=== PATIENT | female | born 1960 | race Two or more races ===

== ENCOUNTER 2024-03-29 08:45 | Inpatient (IN) | payer OTHER ==
[~2024-03-29] VITALS: Ht 162.6 cm; Wt 74.8 kg
[2024-03-29] MEDS ORDERED: LOTREL 5-10 MG1 CAP (08:48)
[2024-03-29] MEDS ORDERED: SYNTHROID150 MCG (08:48)
[2024-03-29] MEDS ORDERED: FAMOTIDINE/PF 20 MG/2 ML VIAL IV PUSH ONE (09:30)
[2024-03-29] MEDS ORDERED: ONDANSETRON HCL 2 MG/ML VIAL IV ONE (09:30)
[2024-03-29 10:02] LABS: HEMATOCRIT 44.7 % (36.0-45.00); HEMOGLOBIN 15.3 g/dL (12.0-15.00); MEAN CELL VOLUME 88.5 fL (80.00-100.00); MEAN CORPUSCULAR HEMOGLOBIN 30.3 pg (27.00-32.0); MEAN CORPUSCULAR HGB CONC 34.2 g/dl (32.0-36.0); PLATELET COUNT 266 K/uL (150-450); RED BLOOD COUNT 5.05 M/uL (4.00-6.00); RED CELL DISTRIBUTION WIDTH 14.3 % (11.5-14.5)
[2024-03-29 11:13] LABS: ALBUMIN 3.6 gm/dL (3.4-5.0); BILIRUBIN TOTAL 0.78 mg/dL (0.3-1.2); CALCIUM 9.5 mg/dL (8.5-10.1); CREATININE SERUM 0.92 mg/dL (0.55-1.02); GFR 61.26; POTASSIUM 4.56 mEq/L (3.5-5.1); TOTAL PROTEIN 6.6 gm/dL (6.4-8.2)
[2024-03-29] MEDS ORDERED: BUTALB/ACETAMINOPHEN/CAFFEINE 1 TAB TABLET PO ONE (12:30)
[2024-03-29] MEDS ORDERED: MECLIZINE HCL 25 MG TABLET PO ONE (12:45)
[2024-03-29] MEDS ORDERED: CEFAZOLIN SODIUM 1,000 MG VIAL IV ONE (17:00)
[2024-03-29 17:01] LABS: HEMOGLOBIN 14.8 g/dL (12.0-15.00); MEAN CORPUSCULAR HEMOGLOBIN 30.3 pg (27.00-32.0); MEAN CORPUSCULAR HGB CONC 34.5 g/dl (32.0-36.0); PLATELET COUNT 261 K/uL (150-450); RED BLOOD COUNT 4.89 M/uL (4.00-6.00); RED CELL DISTRIBUTION WIDTH 14.5 % (11.5-14.5)
[2024-03-29 19:29] LABS: D DIMER 0.25 MG/L
[2024-03-29] MEDS ORDERED: 0.9 % SODIUM CHLORIDE 1,000 ML IV SCH (22:00)
[2024-03-29] MEDS ORDERED: TRAMADOL HCL 50 MG TABLET PO SCH (22:10)
[2024-03-30 03:32] VITALS: BP 120/76
[2024-03-30] MEDS ORDERED: LEVOTHYROXINE SODIUM 150 MCG TABLET PO SCH (06:00)
[2024-03-30] MEDS ORDERED: ENOXAPARIN SODIUM 40 MG/0.4 ML SYRINGE SUBCUTANEO SCH (09:00)
[2024-03-30] MEDS ORDERED: CEFTRIAXONE SODIUM 2,000 MG in 0.9 % SODIUM CHLORIDE 100 ML IV SCH (09:00)
[2024-03-30] MEDS ORDERED: PATIENTS OWN MEDICATION (MEDICAMENTO EN PISO) PO SCH (09:00)
[2024-03-30] MEDS ORDERED: FAMOTIDINE/PF 20 MG in 0.9 % SODIUM CHLORIDE 8 ML IV PUSH SCH (09:00)
[2024-03-30] MEDS ORDERED: VANCOMYCIN HCL 1,000 MG VIAL IV SCH (09:00)
[2024-03-30 09:15] VITALS: BP 111/74; O2SAT 96
[2024-03-30 10:02] LABS: INR 1.06; PARTIAL THROMBOPLASTIN TIME 30.7 SECONDS (22.0-34.0); PROTHROMBIN TIME 11.5 SECONDS (9.0-11.5)
[2024-03-30 18:25] VITALS: BP 110/72; O2SAT 97
[2024-03-30] MEDS ORDERED: AZITHROMYCIN 500 MG VIAL IV SCH (20:40)
[2024-03-30] MEDS ORDERED: TRAMADOL HCL 50 MG TABLET PO PRN (20:58)
[2024-03-30] MEDS ORDERED: VANCOMYCIN HCL 5 MG/ML REDILUIDO IV SCH (21:00)
[2024-03-31 02:20] VITALS: BP 180/84; O2SAT 96
[2024-03-31 06:22] VITALS: BP 120/76
[2024-03-31 07:02] LABS: HEMATOCRIT 41.5 % (36.0-45.00); HEMOGLOBIN 14.1 g/dL (12.0-15.00); MEAN CORPUSCULAR HGB CONC 34.1 g/dl (32.0-36.0); PLATELET COUNT 244 K/uL (150-450); RED BLOOD COUNT 4.56 M/uL (4.00-6.00); RED CELL DISTRIBUTION WIDTH 14.7 % (11.5-14.5)
[2024-03-31 07:06] LABS: ALBUMIN 3.1 gm/dL (3.4-5.0); BILIRUBIN TOTAL 0.63 mg/dL (0.3-1.2); CALCIUM 8.9 mg/dL (8.5-10.1); CREATININE SERUM 0.59 mg/dL (0.55-1.02); GFR 102.29; GLOBULINA 3.1 G/DL (2.4-3.5); MAGNESIUM 2.2 mg/dL (1.8-2.4); PHOSPHOROUS 2.5 mg/dL (2.5-4.9); POTASSIUM 4.04 mEq/L (3.5-5.1); TOTAL PROTEIN 6.2 gm/dL (6.4-8.2)
[2024-03-31] MEDS ORDERED: VANCOMYCIN HCL 1,000 MG VIAL IV SCH (09:00)
[2024-03-31 18:51] VITALS: BP 186/81
[2024-04-01 03:08] VITALS: BP 130/70
[2024-04-01 09:22] VITALS: BP 137/85
[2024-04-01] MEDS ORDERED: INTESTINEX680 M1 PO (16:40)
[2024-04-01] MEDS ORDERED: DUI500 PO (16:40)
[2024-04-01] MEDS ORDERED: PEPCID AC20 MG PO (16:41)
[2024-04-01] MEDS ORDERED: LEVOTHYROXINE150 MCG PO (16:42)
[2024-04-01] MEDS ORDERED: LOTREL 5-20 MG1 CAP PO (16:43)
== END 2024-04-01 17:07 | disposition home or self-care (01) | DRG 872 ==
LOC: ER 08:46 → MEDJ 22:11
PROVIDERS: Emergency Medicine; General Practice; ADMIT Internal Medicine; ATTEND Internal Medicine
PROC: B54MZZZ Ultrasonography of Right Upper Extremity Veins (ICD-10-PCS; principal; 2024-03-29)
PROC: BW28ZZZ Computerized Tomography (CT Scan) of Head (ICD-10-PCS; 2024-03-29)
PROC: BP3 Imaging, Non-Axial Upper Bones, Magnetic Resonance Imaging (MRI) (ICD-10-PCS; 2024-03-30)
DX: A41.9 Sepsis, unspecified organism (principal); L03.113 Cellulitis of right upper limb; A28.1 Cat-scratch disease; I10 Essential (primary) hypertension; E03.9 Hypothyroidism, unspecified
CPT/HCPCS: 73225